=== PATIENT | female | born 1990 | race Caucasian/White ===

== ENCOUNTER 2016-11-15 23:35 | Emergency (ER) | payer SELFPAY ==
--- NOTE | 2016-11-16 00:06 | Emergency Department Record ---
History of Present Illness - General Chief complaint: ENT Stated complaint: LEFT EAR PAIN Time Seen by Provider: 11/15/16 23:50 Source: Patient Mode of Arrival: Ambulatory Limitations: No limitations - History of Present Illness Initial comments: pt went swimming in a pool 2 days ago and has been having increased pain since, complaint: Ear pain Onset/Timin -: Days(s) Location: L ear Severity: Severe Severity scale (1-10): 8 Quality: Aching Consistency: Constant, Getting worse - Related Data Previous Rx's Medication Instructions Recorded Amoxicillin/Potassium Clav 1 tab PO BID #14 tab 11/16/16 [Augmentin 875-125 Tablet] Allergies Allergy/AdvReac Type Severity Reaction Status Date / Time No Known Drug Allergies Allergy Unverified 01/06/16 10:20 Travel Screening - Travel/Exposure Within Last 30 Days Have you traveled within the last 30 days?: No Review of Systems Reviewed: No additional complaints except as noted below Constitutional: Reports: As per HPI. Denies: Chills, Fever, Malaise, Night sweats, Weakness, Weight change Eyes: Reports: As per HPI. Denies: Eye discharge, Eye pain, Photophobia, Vision change ENT: Reports: As per HPI. Denies: Congestion, Dental pain, Ear pain, Epistaxis , Hearing loss, Throat pain Respiratory: Reports: As per HPI. Denies: Cough, Dyspnea, Hemoptysis, Stridor, Wheezes Cardiovascular: Reports: As per HPI. Denies: Arrhythmia, Chest pain, Dyspnea on exertion, Edema, Murmurs, Orthopnea, Palpitations, Paroxysmal nocturnal dyspnea, Rheumatic Fever, Syncope Endocrine: Reports: As per HPI. Denies: Fatigue, Heat or cold intolerance, Polydipsia, Polyuria Gastrointestinal: Reports: As per HPI. Denies: Abdominal pain, Constipation, Diarrhea, Hematemesis, Hematochezia, Melena, Nausea, Vomiting Genitourinary: Reports: As per HPI. Denies: Abnormal menses, Discharge, Dyspareunia, Dysuria, Frequency, Hematuria, Incontinence, Retention, Urgency Musculoskeletal: Reports: As per HPI. Denies: Arthralgia, Back pain, Gout, Joint swelling, Myalgia, Neck pain Skin: Reports: As per HPI. Denies: Bruising, Change in color, Change in hair/ nails, Lesions, Pruritus, Rash Neurological: Reports: As per HPI. Denies: Abnormal gait, Confusion, Headache, Numbness, Paresthesias, Seizure, Tingling, Tremors, Vertigo, Weakness Psychiatric: Reports: As per HPI. Denies: Anxiety, Auditory hallucinations, Depression, Homicidal thoughts, Suicidal thoughts, Visual hallucinations Hematological/Lymphatic: Reports: As per HPI. Denies: Anemia, Blood Clots, Easy bleeding, Easy bruising, Swollen glands Past Medical History - SOCIAL HISTORY Smoking Status: Current every day smoker Alcohol Use: Occasional Drug Use: None - RESPIRATORY Hx Respiratory Disorders: Yes Hx Asthma: Yes - CARDIOVASCULAR Hx Cardio Disorders: No - NEURO Hx Neuro Disorders: No - GI Hx GI Disorders: No - Hx Genitourinary Disorders: No - ENDOCRINE Hx Endocrine Disorders: No - MUSCULOSKELETAL Hx Musculoskeletal Disorders: No - PSYCH Hx Psych Problems: Yes Hx Anxiety: Yes Hx Depression: Yes - HEMATOLOGY/ONCOLOGY Hx Hematology/Oncology Disorders: No Family Medical History Any Significant Family History?: No Family Hx Comment (NOT TO BE USED IN PLACE OF ITEMS BELOW): unknown Physical Exam - General General Appearance: Alert, Oriented x3, Cooperative, Mild distress - Head Head exam: Normal inspection - Eye Eye exam: Normal appearance, PERRL, EOMI Pupils: Normal accommodation - ENT ENT exam: Normal exam, Mucous membranes moist, Normal external ear exam, Normal orophraynx, Other (swelling of canal w erythema and exquisite tenderness. tm erythematous) Ear exam: Normal external inspection, External canal tenderness Nasal Exam: Normal inspection. negative: Discharge, Sinus tenderness Mouth exam: Normal external inspection, Tongue normal Teeth exam: Normal inspection. negative: Dental caries Throat exam: Normal inspection. negative: Tonsillar erythema, Tonsillar exudate - Neck Neck exam: Normal inspection, Full ROM. negative: Tenderness - Respiratory Respiratory exam: Normal lung sounds bilaterally. negative: Respiratory distress - Cardiovascular Cardiovascular Exam: Regular rate, Normal rhythm, Normal heart sounds - GI/Abdominal GI/Abdominal exam: Soft, Normal bowel sounds. negative: Tenderness - Rectal Rectal exam: Deferred - exam: Deferred - Extremities Extremities exam: Normal inspection, Full ROM, Normal capillary refill. negative: Tenderness - Back Back exam: Reports: Normal inspection, Full ROM. Denies: Muscle spasm, Rash noted, Tenderness - Neurological Neurological exam: Alert, CN II-XII intact, Normal gait, Oriented X3 - Psychiatric Psychiatric exam: Normal affect, Normal mood - Skin Skin exam: Dry, Intact, Normal color, Warm Course Vital Signs 11/15/16 23:38 Temperature 98.8 F Pulse Rate 77 Respiratory 18 Rate Blood Pressure 128/81 Pulse Ox 99 Disposition Disposition: Discharge Clinical Impression: Otitis externa Qualifiers: Otitis externa type: swimmer's ear Chronicity: acute Laterality: left Qualified Code(s): H60.332 - Swimmer's ear, left ear Otitis media Qualifiers: Otitis media type: other nonsuppurative Chronicity: acute Laterality: left Recurrence: not specified as recurrent Qualified Code(s): H65.192 - Other acute nonsuppurative otitis media, left ear Disposition: Home, Self-Care Condition: (1) Good Instructions: Otitis Externa (ED), Otitis Media (ED) Additional Instructions: follow up with family doctor. return sooner if worse. cortisporin otic drops 4 drops 4 times a day for 7 days. Prescriptions: Amoxicillin/Potassium Clav [Augmentin 875-125 Tablet] 1 tab PO BID #14 tab Forms: Patient Portal Access Quality - Quality Measures Quality Measures: Acute Otitis Externa (AOE) - AOE: Topical Therapy Quality Measure: Measure #91: Acute Otitis Externa (AOE) View Details: Yes AOE: Topical Preparations: < Topical Preparations (Inc. OTC) prescribed for AOE > [4130F] - AOE: Systemic Antimicrobial Therapy Quality Measure: Measure #93: Acute Otitis Externa (AOE) AOE: Systemic Antimicrobial Therapy: Medical Reasons for Systemic Antimicrobial Therapy [4131F with 1P] Medical Reason For Prescribing: Other (dual diagnosis. oe and om) - Blood Pressure Screening Blood Pressure Classification: Pre-Hypertensive BP Reading Systolic Measurement: 128 Diastolic Measurement: 81 Screening for High Blood Pressure: < Normal BP, F/U Not Required > [G8783] Normal BP Follow-up Interventions: No follow-up required
[2016-11-16] MEDS: AMOXICILLIN/POTASSIUM CLAV 875MG/125MG TABLET PO ONE (00:09)
[2016-11-16] MEDS: NEOMYCIN/POLYMYXIN B SULF/HC 10ML BTL OT ONE (00:09)
[2016-11-16] MEDS: HYDROCODONE/APAP 5/325MG TABLET PO ONE (00:09)
== END 2016-11-16 00:29 | disposition home or self-care (01) ==
LOC: ER 23:35
DX: H60.332 Swimmer's ear, left ear (principal); H65.192 Other acute nonsuppurative otitis media, left ear
CPT/HCPCS: 99282

== ENCOUNTER 2016-11-16 22:02 | Emergency (ER) | payer SELFPAY ==
[2016-11-16] MEDS ORDERED: HYDROCODONE/APAP 5/325MG TABLET PO ONE (22:15)
--- NOTE | 2016-11-16 22:21 | Emergency Department Record ---
History of Present Illness - General Chief complaint: ENT Stated complaint: EAR PAIN Time Seen by Provider: 11/16/16 22:04 Source: Patient Mode of Arrival: Ambulatory Limitations: No limitations - History of Present Illness Initial comments: pt was here last pm for earache and was started on abx and ear drops. she has contd to get worse and is back 24 hrs later for increased pain MD complaint: Ear pain Onset/Timin -: Days(s) Location: L ear Severity scale (1-10): 7 Quality: Sharp Consistency: Constant Worsens with: None - Related Data Previous Rx's Medication Instructions Recorded Amoxicillin/Potassium Clav 1 tab PO BID #14 tab 11/16/16 [Augmentin 875-125 Tablet] Ciprofloxacin HCl [Cipro] 750 mg PO BID #20 tablet 11/17/16 Ciprofloxacin HCl/Dexameth 4 drop OT BID #1 drops.susp 11/17/16 [Ciprodex Otic Suspension] Hydrocodone/Acetaminophen [Pacifica 1 each PO QID #10 tablet 11/17/16 5-325 Tablet] Allergies Allergy/AdvReac Type Severity Reaction Status Date / Time No Known Drug Allergies Allergy Unverified 01/06/16 10:20 Travel Screening - Travel/Exposure Within Last 30 Days Have you traveled within the last 30 days?: No Review of Systems Reviewed: No additional complaints except as noted below Constitutional: Reports: As per HPI. Denies: Chills, Fever, Malaise, Night sweats, Weakness, Weight change Eyes: Reports: As per HPI. Denies: Eye discharge, Eye pain, Photophobia, Vision change ENT: Reports: As per HPI. Denies: Congestion, Dental pain, Ear pain, Epistaxis , Hearing loss, Throat pain Respiratory: Reports: As per HPI. Denies: Cough, Dyspnea, Hemoptysis, Stridor, Wheezes Cardiovascular: Reports: As per HPI. Denies: Arrhythmia, Chest pain, Dyspnea on exertion, Edema, Murmurs, Orthopnea, Palpitations, Paroxysmal nocturnal dyspnea, Rheumatic Fever, Syncope Endocrine: Reports: As per HPI. Denies: Fatigue, Heat or cold intolerance, Polydipsia, Polyuria Gastrointestinal: Reports: As per HPI. Denies: Abdominal pain, Constipation, Diarrhea, Hematemesis, Hematochezia, Melena, Nausea, Vomiting Genitourinary: Reports: As per HPI. Denies: Abnormal menses, Discharge, Dyspareunia, Dysuria, Frequency, Hematuria, Incontinence, Retention, Urgency Musculoskeletal: Reports: As per HPI. Denies: Arthralgia, Back pain, Gout, Joint swelling, Myalgia, Neck pain Skin: Reports: As per HPI. Denies: Bruising, Change in color, Change in hair/ nails, Lesions, Pruritus, Rash Neurological: Reports: As per HPI. Denies: Abnormal gait, Confusion, Headache, Numbness, Paresthesias, Seizure, Tingling, Tremors, Vertigo, Weakness Psychiatric: Reports: As per HPI. Denies: Anxiety, Auditory hallucinations, Depression, Homicidal thoughts, Suicidal thoughts, Visual hallucinations Hematological/Lymphatic: Reports: As per HPI. Denies: Anemia, Blood Clots, Easy bleeding, Easy bruising, Swollen glands Past Medical History - SOCIAL HISTORY Smoking Status: Former smoker Alcohol Use: None Drug Use: None - RESPIRATORY Hx Respiratory Disorders: Yes Hx Asthma: Yes - CARDIOVASCULAR Hx Cardio Disorders: No - NEURO Hx Neuro Disorders: No - GI Hx GI Disorders: No - Hx Genitourinary Disorders: No - ENDOCRINE Hx Endocrine Disorders: No - MUSCULOSKELETAL Hx Musculoskeletal Disorders: No - PSYCH Hx Psych Problems: Yes Hx Anxiety: Yes Hx Depression: Yes - HEMATOLOGY/ONCOLOGY Hx Hematology/Oncology Disorders: No Family Medical History Any Significant Family History?: No Family Hx Comment (NOT TO BE USED IN PLACE OF ITEMS BELOW): unknown Physical Exam - General General Appearance: Alert, Oriented x3, Cooperative, Mild distress - Head Head exam: Normal inspection - Eye Eye exam: Normal appearance, PERRL, EOMI Pupils: Normal accommodation - ENT ENT exam: Normal exam, Mucous membranes moist, Normal external ear exam, Normal orophraynx, Other (swelling of canal w tenderness) Ear exam: Normal external inspection. negative: External canal tenderness Nasal Exam: Normal inspection. negative: Discharge, Sinus tenderness Mouth exam: Normal external inspection, Tongue normal Teeth exam: Normal inspection. negative: Dental caries Throat exam: Normal inspection. negative: Tonsillar erythema, Tonsillar exudate - Neck Neck exam: Normal inspection, Full ROM. negative: Tenderness - Respiratory Respiratory exam: Normal lung sounds bilaterally. negative: Respiratory distress - Cardiovascular Cardiovascular Exam: Regular rate, Normal rhythm, Normal heart sounds - GI/Abdominal GI/Abdominal exam: Soft, Normal bowel sounds. negative: Tenderness - Rectal Rectal exam: Deferred - exam: Deferred - Extremities Extremities exam: Normal inspection, Full ROM, Normal capillary refill. negative: Tenderness - Back Back exam: Reports: Normal inspection, Full ROM. Denies: Muscle spasm, Rash noted, Tenderness - Neurological Neurological exam: Alert, Normal gait, Oriented X3, Reflexes normal - Psychiatric Psychiatric exam: Normal affect, Normal mood - Skin Skin exam: Dry, Intact, Normal color, Warm Course Vital Signs 11/16/16 22:07 Temperature 98.3 F Pulse Rate [ 100 H Pulse Ox Probe] Respiratory 16 Rate Blood Pressure 131/77 [Left Arm] Pulse Ox 98 - Reevaluation(s) Reevaluation #1: 11/17/16 00:09 pt d/w dr blair who will see pt tomorrow. pt agrees w treatment. rad read cannot r/o malignant oe Medical Decision Making - Lab Data Result diagrams: 11/16/16 22:31 Disposition Disposition: Discharge Clinical Impression: Malignant otitis externa of left ear Qualifiers: Chronicity: acute Qualified Code(s): H60.22 - Malignant otitis externa, left ear Otitis media Qualifiers: Otitis media type: suppurative Chronicity: acute Laterality: left Recurrence: not specified as recurrent Spontaneous tympanic membrane rupture: without spontaneous rupture Qualified Code(s): H66.002 - Acute suppurative otitis media without spontaneous rupture of ear drum, left ear Disposition: Home, Self-Care Condition: (1) Good Instructions: Otitis Externa (ED), Otitis Media (ED) Additional Instructions: follow up with dr blair tomorrow without fail. return sooner if worse. use drops with ear wick Prescriptions: Ciprofloxacin HCl [Cipro] 750 mg PO BID #20 tablet Ciprofloxacin HCl/Dexameth [Ciprodex Otic Suspension] 4 drop OT BID #1 drops.susp Hydrocodone/Acetaminophen [Pacifica 5-325 Tablet] 1 each PO QID #10 tablet Forms: Patient Portal Access Quality - Quality Measures Quality Measures: Acute Otitis Externa (AOE) - AOE: Topical Therapy Quality Measure: Measure #91: Acute Otitis Externa (AOE) AOE: Topical Preparations: < Topical Preparations (Inc. OTC) prescribed for AOE > [5740F] - AOE: Systemic Antimicrobial Therapy Quality Measure: Measure #93: Acute Otitis Externa (AOE) AOE: Systemic Antimicrobial Therapy: Medical Reasons for Systemic Antimicrobial Therapy [4131F with 1P] Medical Reason For Prescribing: Other - Blood Pressure Screening Blood Pressure Classification: Pre-Hypertensive BP Reading Systolic Measurement: 131 Diastolic Measurement: 77 Screening for High Blood Pressure: < Normal BP, F/U Not Required > [G8783] Normal BP Follow-up Interventions: No follow-up required
[2016-11-16 22:31] LABS: BASO % 0.3 % (0-6); GRAN % 76.6 % (47-80); HEMOGLOBIN 13.8 gm/dl (11.6-16.0); LYMPH % 11.7 % (16-45); MEAN CELL VOLUME 84.9 fl (81-97); MEAN CORPUSCULAR HEMOGLOBIN 28.6 pg (27-33); MEAN CORPUSCULAR HGB CONC 33.7 g/dl (32-36); MEAN PLATELET VOLUME 11.3 fl (7.4-10.4); MONO % 7.4 % (0-9); PLATELET COUNT 189 K/uL (130-400); RED BLOOD COUNT 4.83 M/uL (3.80-5.40); RED CELL DISTRIBUTION WIDTH 12.9 % (11.5-14.5); WHITE BLOOD COUNT W/O DIFF 7.7 K/uL (4.2-12.2)
[2016-11-16] MEDS ORDERED: CIPROFLOXACIN HCL 500 MG TABLET PO ONE (23:13)
[2016-11-16] MEDS ORDERED: ONDANSETRON 4 MG ODT TABLET SL ONE (23:32)
[2016-11-16] MEDS ORDERED: CIPROFLOXACIN HCL/DEXAMETHASONE OTIC SUSP OT ONE (23:33)
[2016-11-17] MEDS ORDERED: HYDROCODONE/APAP 5/325MG TABLET PO ONE (00:10)
--- NOTE | 2016-11-17 12:31 | CT SCAN REPORT ---
EXAM: CT OF THE INTERNAL AUDITORY CANALS WITHOUT CONTRAST HISTORY: ACUTE LEFT EAR PAIN, NUMBNESS LEFT CHEEK AND LEFT NECK FOR TWO DAYS. TECHNIQUE: Contiguous axial images from the level of the mid brain to the hard palate were obtained without contrast. Sagittal and coronal two dimensional reformatted images were obtained for better anatomic delineation. Comparison: Head CT 05/21/13. FINDINGS: There is opacification of the left mesotympanum. The auditory ossicles are intact. No erosion of the scutum. There is also opacification of the left external auditory canal with increased attenuation surrounding the left external auditory canal. Minimal fluid in the left mastoid air cells with no coalescence. Mild mucosal thickening maxillary sinuses. The orbits are intact. IMPRESSION: 1. OPACIFICATION OF THE LEFT MESOTYMPANUM CONSISTENT WITH OTITIS MEDIA. NO EROSION OF THE SCUTUM OR AUDITORY OSSICLES. 2. OPACIFICATION OF THE LEFT EXTERNAL AUDITORY CANAL WITH INCREASED ATTENUATION MARGINATING THE EXTERNAL AUDITORY CANAL FOR WHICH MALIGNANT OTITIS EXTERNA IS NOT EXCLUDED. 3. MUCOSAL THICKENING IN THE MAXILLARY SINUSES CONSISTENT WITH CHRONIC SINUSITIS. 4. MINIMAL FLUID IN THE LEFT MASTOID AIR CELLS LIKELY DUE TO TRAPPED STERILE FLUID. JOB NUMBER: [id number] [facility]
== END 2016-11-17 00:49 | disposition home or self-care (01) ==
LOC: ER 22:02
DX: H60.22 Malignant otitis externa, left ear (principal); H66.002 Acute suppurative otitis media without spontaneous rupture of ear drum, left ear; R20.0 Anesthesia of skin
CPT/HCPCS: 70480; 85025; 99283; 99284